=== PATIENT | male | born 1990 | race Caucasian/White ===

== ENCOUNTER 2020-12-21 20:47 | Observation (INO) | payer SELFPAY ==
[2020-12-21] MEDS ORDERED: LORazepam 2 MG/ML Syringe IVPUSH ONE ×2 (20:56→21:06)
--- NOTE | 2020-12-21 21:14 | EDM.PDOCBH ---
ED HPI GENERAL MEDICAL PROBLEM - General Chief Complaint: Drug or Alcohol Abuse Stated Complaint: "Trouble breathing" Time Seen by Provider: 12/21/20 20:54 Source of Information: Reports: Patient, EMS, RN - History of Present Illness INITIAL COMMENTS - FREE TEXT/NARRATIVE: Very difficult to follow pts thought pattern as he is all over. He is said to be homeless and was taken to a local hotel by law enforcement earlier and then EMS was called. He states that he felt SOB and "took to much meth today" He is breathing without any difficulty. He is agitated and anxious. He states that he went AMA from the rehab house in [place] and had been clean for 14 days and then he shot up some meth about 4 pm and then he smoked some stuff and now he is afraid that he is going to . He is anxious and flailing all over the bed. He states that he doesn't want to be homeless and he doesn't want to . Onset: Gradual Location: Reports: Generalized - Related Data Allergies Allergy/AdvReac Type Severity Reaction Status Date / Time trazodone Allergy Blurred Verified 12/21/20 21:00 [facility] Meds: Home Meds risperiDONE [Risperdal] 3 mg DAILY 12/21/20 [History] Past Medical History Psychiatric History: Reports: Addiction, Anxiety Social & Family History - Living Situation & Occupation Living situation: Reports: Other (homeless) ED ROS GENERAL - Review of Systems Review Of Systems: Unable To Obtain Reason Not Obtained: Pt is high and is very difficult to get straight answer from him. ED EXAM, BEHAVIORAL HEALTH - Physical Exam Exam: See Below Exam Limited By: Other (high on meth and very anxious.) General Appearance: Alert, Anxious Throat/Mouth: Normal Voice, Other (side of tongue is red and has some ulceration that he states are from "sucing his tongue up against his teeth".) Head: Atraumatic, Normocephalic Neck: Normal Inspection, Supple Respiratory/Chest: No Respiratory Distress, Lungs Clear, Normal Breath Sounds Cardiovascular: Regular Rate, Rhythm GI/Abdominal: Normal Bowel Sounds, Soft, Non-Tender Extremities: Normal Inspection, Normal Range of Motion, No Pedal Edema, Normal Capillary Refill Neurological: Alert Psychiatric: Agitated, Other (anxious.). No: Homicidal Thoughts, Suicidal Thoughts Skin Exam: Warm, Dry COURSE, BEHAVIORAL HEALTH COMP - Course Vital Signs: Last Vital Signs Temp Pulse 107 H 12/21/20 20:48 Resp 22 H 12/21/20 20:48 BP 122/78 12/21/20 20:48 Pulse Ox 95 12/21/20 20:48 Orders, Labs, Meds: Laboratory Tests 12/21/20 12/21/20 12/21/20 Range/Units 21:30 21:30 21:35 WBC 7.6 (4.0-11.0) 10^3/uL RBC 4.34 L (4.50-6.00) x10^6/uL Hgb 12.6 L (14.0-18.0) g/dL Hct 36.2 L (42.0-52.0) % MCV 83.4 (83.0-97.0) fL MCH 29.0 (27.0-32.0) pg MCHC 34.8 (32.0-36.0) g/dL RDW Coeff of Kim 12.2 (11.0-15.0) % Plt Count 234 (150-400) 10^3/uL Immature Gran % (Auto) 0.1 (0.0-4.9) % Neut % (Auto) 49.7 (41-71) % Lymph % (Auto) 34.3 (24-44) % Warrick % (Auto) 13.3 H (0-10) % Eos % (Auto) 2.2 (0-6) % Baso % (Auto) 0.4 (0-1) % Neut # (Auto) 3.76 (1.80-8.00) x10^3/uL Lymph # (Auto) 2.60 (0.60-5.00) 10^3/uL Warrick # (Auto) 1.01 (0.00-1.50) 10^3/uL Eos # (Auto) 0.17 (0.00-1.50) 10^3/uL Baso # (Auto) 0.03 (0.00-0.50) 10^3/uL Immature Gran # (Auto) 0.01 (0.00-0.49) 10^3/uL Sodium 142 (136-145) mEq/L Potassium 3.3 L (3.5-5.0) mEq/L Chloride 104 (98-106) mEq/L Carbon Dioxide 26 (21-32) mmol/L BUN 20 H (7-18) mg/dL Creatinine 0.9 (0.7-1.3) mg/dL Est Cr Clr Drug Dosing TNP Estimated GFR (MDRD) > 60 (>=60) mL/min Glucose 119 H (75-99) mg/dL Calcium 8.6 (8.4-10.1) mg/dL Magnesium 2.1 (1.8-2.4) mg/dL Total Bilirubin 0.6 (0.0-1.0) mg/dL AST 34 (15-37) U/L ALT 45 (12-78) U/L Alkaline Phosphatase 68 (46-116) U/L Total Protein 7.1 (6.4-8.2) g/dL Albumin 3.7 (3.4-5.0) g/dL Urine Opiates Screen Negative (NEGATIVE) Ur Oxycodone Screen Negative (NEGATIVE) Urine Methadone Screen Negative (NEGATIVE) Ur Barbiturates Screen Negative (NEGATIVE) U Tricyclic Antidepress Negative (NEGATIVE) Ur Phencyclidine Scrn Negative (NEGATIVE) Ur Amphetamine Screen Positive H (NEGATIVE) U Methamphetamines Scrn Positive H (NEGATIVE) Urine MDMA Screen Negative (NEGATIVE) U Benzodiazepines Scrn Negative (NEGATIVE) Urine Cocaine Screen Negative (NEGATIVE) U Marijuana (THC) Screen Positive H (NEGATIVE) Medications Discontinued Medications Generic Name Dose Route Start Last Admin Trade Name Freq PRN Reason Stop Dose Admin Lorazepam 1 mg 12/21/20 20:56 12/21/20 21:43 Lorazepam 2 Mg/Ml Syringe IVPUSH 12/21/20 20:57 Not Given ONETIME ONE Lorazepam 0.5 mg 12/21/20 21:06 12/21/20 21:08 Lorazepam 2 Mg/Ml Syringe IVPUSH 12/21/20 21:07 0.5 mg ONETIME ONE Administration Re-Assessment/Re-Exam: pt is sleeping easily at this time after having some ativan IV. Will admit observation with IV fluids and reassess in the AM. Will use the ativan prn as needed for agitation and anxiety. Departure - Departure Time of Disposition: 22:27 Disposition: Refer to Observation Condition: Good Clinical Impression: Drug dependence, Agitation - Discharge Information *PRESCRIPTION DRUG MONITORING PROGRAM REVIEWED*: Not Applicable *COPY OF PRESCRIPTION DRUG MONITORING REPORT IN PATIENT [place]: Not Applicable Sepsis Event Note (ED) - Focused Exam Vital Signs: Vital Signs Pulse Resp BP Pulse Ox 12/21/20 20:48 107 H 22 H 122/78 95 - Problem List & Annotations (1) Agitation SNOMED Code(s): 252787918 Code(s): R45.1 - RESTLESSNESS AND AGITATION Status: Acute Priority: High Current Visit: Yes (2) Drug dependence SNOMED Code(s): 852132094 Code(s): F19.20 - OTHER PSYCHOACTIVE SUBSTANCE DEPENDENCE, UNCOMPLICATED Status: Acute Priority: High Current Visit: Yes - Problem List Review Problem List Initiated/Reviewed/Updated: Yes - Assessment/Plan Admission H&P: Please use this note as an admission H&P
[2020-12-21 21:44] LABS: BARBITURATES,URINE NEGATIVE (NEGATIVE); BENZODIAZEPINE,URINE NEGATIVE (NEGATIVE); MDMA (ECSTASY), URINE NEGATIVE (NEGATIVE); METHADONE,URINE NEGATIVE (NEGATIVE); METHAMPHETAMINES,URINE POSITIVE (NEGATIVE); OPIATES,URINE NEGATIVE (NEGATIVE); TCA,URINE NEGATIVE (NEGATIVE)
[2020-12-21 21:45] LABS: AMPHETAMINES,URINE POSITIVE (NEGATIVE); OXYCODONE,URINE NEGATIVE (NEGATIVE); PHENCYCLIDINE,URINE NEGATIVE (NEGATIVE)
[2020-12-21 21:50] LABS: CHLORIDE,CL 104 mEq/L (98-106); SODIUM,NA 142 mEq/L (136-145)
[2020-12-21] MEDS ORDERED: Sodium Chloride 0.9% 1,000 ML IV SCH (22:15)
[2020-12-21] MEDS ORDERED: LORazepam 2 MG/ML Syringe IVPUSH PRN (22:22)
--- NOTE | 2020-12-23 00:47 | DISCH ---
ADMISSION DIAGNOSES: 1. Meth abuse. 2. Agitation. DISCHARGE DIAGNOSIS: 1. METH ABUSE. 2. AGITATION. HISTORY: The patient is I believe originally from [place]. He is in [place] in the [facility]. He is there for drug abuse in the form of meth. He apparently was given a pass and went up and shot a meth and was in [place] when the client resolution specialist found him and put him in a hotel room. He started complaining of agitation, shortness of breath, thinking he was going to because he thought he did too much meth, and they brought him to the emergency room and Ariane Hightower evaluated him. Basically sats were fine. Vitals look fine. He was given some Ativan, started sleeping, and was fine the whole time he was here. She elected to put him in for observation. HOSPITAL COURSE: The patient's vitals have been fine since here. He has not been tachycardic. Has not had any fevers. Blood pressures have been fine. Roused him this morning easily. He is pleasant and cooperative. HEENT is benign. Neck veins are flat. Lungs are clear. Abdomen is benign. He has no neurologic complaints. He has a ride apparently from the Police to [place] to get back on a bus to go home to his parents in [place]. We will help facilitate that. COMPLICATIONS: During his stay were none. CONSULTATIONS: None. DISPOSITION: Discharged home. ALANA /[id number]
== END 2020-12-22 10:00 | disposition home or self-care (01) ==
LOC: CC.ED 20:47 → UNDOADMOB 22:00 → CC.MS 22:00
PROVIDERS: ADMIT Physician Assistant Medical; ATTEND Family Medicine
DX: R45.1 Restlessness and agitation (principal); F15.10 Other stimulant abuse, uncomplicated; R06.02 Shortness of breath; F41.9 Anxiety disorder, unspecified; Z88.8 Allergy status to other drugs, medicaments and biological substances; Z79.899 Other long term (current) drug therapy
CPT/HCPCS: 36415; 80053; 80305-QW; 83735; 85025; 96374; 99285-25; G0378; J2060; J7030